=== PATIENT | female | born 2000 | race Caucasian/White ===

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

== ENCOUNTER → 2022-03-04 | Outpatient (CLI) | payer OTHER ==
--- NOTE | 2022-03-05 07:49 | US ---
EXAMINATION TYPE: US kidneys/renal and bladder DATE OF EXAM: 03/04/2022 COMPARISON: Renal ultrasound 03/04/2021 CLINICAL HISTORY: N28.1 Cyst of kidney. EXAM MEASUREMENTS: Right Kidney: 10.4 x 5.5 x 4.6 cm Left Kidney: 11.5 x 5.3 x 4.8 cm Technically difficult and somewhat limited due to overlying bowel gas. Right Kidney: No hydronephrosis or masses seen Left Kidney: cyst measuring 0.9 x 0.8 x 1.0cm Bladder: wnl Bilateral Jets seen: Yes There is no evidence for hydronephrosis at this point in time. No nephrolithiasis. A simple cyst serjio uring 1.0 cm in the mid left kidney No masses are identified. The urinary bladder is anechoic. Bila teral ureteral jets are seen. IMPRESSION: 1. Left mid kidney 1 cm simple cyst. 2. No evidence of obstructive uropathy or shadowing calculus.
== END | disposition home or self-care (01) ==
LOC: RADUSWWP 16:03
PROVIDERS: ATTEND Urology
DX: N28.1 Cyst of kidney, acquired (principal)
CPT/HCPCS: 76770

== ENCOUNTER 2024-08-21 20:16 | Emergency (ER) | payer OTHER ==
--- NOTE | 2024-08-21 20:44 | ED ---
General Adult HPI - General Source: patient, RN notes reviewed Mode of arrival: ambulatory Limitations: no limitations <Olga Lidia Norris - Last Filed: 08/21/24 23:27> <Benita Dutta - Last Filed: 08/22/24 02:44> - General Chief complaint: Abdominal Pain Stated complaint: abd pain Time Seen by Provider: 08/21/24 20:28 - History of Present Illness Initial comments: 24-year-old female presents to the emergency department with abdominal pain. Patient reports that in the right lower abdomen. She states that this started today. She does report that it is intermittent. She states it is lasting around 20 minutes at a time. She states it is a sharp shooting pain. Admits to chills. She does note that she has had a cold. (Olga Lidia Norris) - Related Data Home Medications Medication Instructions Recorded Confirmed Doxycycline Monohydrate [Monodox] 100 mg PO HS 09/30/20 09/30/20 Previous Rx's Medication Instructions Recorded Ondansetron Odt [Zofran Odt] 4 mg PO Q8HR PRN #10 tab 09/16/20 Ketorolac [Toradol] 10 mg PO Q8HR #8 tab 09/30/20 Allergies Allergy/AdvReac Type Severity Reaction Status Date / Time No Known Allergies Allergy Verified 08/21/24 20:20 Review of Systems ROS Other: All systems not noted in ROS Statement are negative. <Olga Lidia Norris - Last Filed: 08/21/24 23:27> ROS Other: All systems not noted in ROS Statement are negative. <Benita Dutta - Last Filed: 08/22/24 02:44> ROS Statement: Those systems with pertinent positive or pertinent negative responses have been documented in the HPI. Past Medical History Past Medical History: No Reported History Additional Past Medical History / Comment(s): kidney stones History of Any Multi-Drug Resistant Organisms: None Reported Additional Past Surgical History / Comment(s): ovarian cyst removal Past Psychological History: No Psychological Hx Reported Smoking Status: Never smoker Past Alcohol Use History: None Reported Past Drug Use History: None Reported <Olga Lidia Norris - Last Filed: 08/21/24 23:27> General Exam Limitations: no limitations General appearance: alert, in no apparent distress Head exam: Present: atraumatic, normocephalic, normal inspection Eye exam: Present: normal appearance, PERRL, EOMI. Absent: scleral icterus, conjunctival injection, periorbital swelling ENT exam: Present: normal exam, mucous membranes moist Respiratory exam: Present: normal lung sounds bilaterally. Absent: respiratory distress, wheezes, rales, rhonchi, stridor Cardiovascular Exam: Present: regular rate, normal rhythm, normal heart sounds. Absent: systolic murmur, diastolic murmur, rubs, gallop, clicks GI/Abdominal exam: Present: soft, tenderness (RLQ), normal bowel sounds. Absent: distended, guarding, rebound, rigid Extremities exam: Present: normal inspection, full ROM, normal capillary refill. Absent: tenderness, pedal edema, joint swelling, calf tenderness Back exam: Present: normal inspection Neurological exam: Present: alert, oriented X3 Psychiatric exam: Present: normal affect, normal mood Skin exam: Present: warm, dry, intact, normal color. Absent: rash <Olga Lidia Norris - Last Filed: 08/21/24 23:27> Limitations: no limitations General appearance: alert, in no apparent distress GI/Abdominal exam: Present: tenderness <Benita Dutta - Last Filed: 08/22/24 02:44> Course Vital Signs 08/21/24 08/22/24 08/22/24 20:18 00:06 02:14 Temperature 98.3 F 101.7 F H 99.6 F Pulse Rate 97 117 H 107 H Respiratory 18 17 19 Rate Blood Pressure 140/89 117/74 110/65 O2 Sat by Pulse 99 99 100 Oximetry Medical Decision Making - Lab Data Result diagrams: 08/21/24 21:14 08/21/24 21:14 <Olga Lidia Norris - Last Filed: 08/21/24 23:27> - Lab Data Result diagrams: 08/21/24 21:14 08/21/24 21:14 - Radiology Data Radiology results: report reviewed, image reviewed <Benita Dutta - Last Filed: 08/22/24 02:44> - Medical Decision Making Was pt. sent in by a medical professional or institution (, PA, SALES REPRESENTATIVE WIRE ROPE, urgent care, hospital, or residential...) When possible be specific @ -[No] Did you speak to anyone other than the patient for history (EMS, parent, family, police, friend...)? What history was obtained from this source @ -[No] Did you review nursing and triage notes (agree or disagree)? Why? @ -[I reviewed and agree with nursing and triage notes] Were old charts reviewed (outside hosp., previous admission, EMS record, old EKG, old radiological studies, urgent care reports/EKG's, residential records)? Report findings @ -[No old charts were reviewed] Differential Diagnosis (chest pain, altered mental status, abdominal pain women, abdominal pain men, vaginal bleeding, weakness, fever, dyspnea, syncope, headache, dizziness, GI bleed, back pain, seizure, CVA, palpatations, mental health, musculoskeletal)? @ -Differential Abdominal Pain Men: Appendicitis, cholecystitis, diverticulosis, ischemic bowel, pancreatitis, hepatitis, UTI, gastroenteritis, AAA, incarcerated hernia, bowel obstruction, constipation, inflammatory bowel, hepatitis, peptic ulcer disease, splenic infa rction, perforated viscus, testicular torsion, this is not meant to be an all- inclusive list EKG interpreted by me (3pts min.). @ -None X-rays interpreted by me (1pt min.). @ -[None done] CT interpreted by me (1pt min.). @ -[None done] U/S interpreted by me (1pt. min.). @ -[None done] What testing was considered but not performed or refused? (CT, X-rays, U/S, labs)? Why? @ -[None] What meds were considered but not given or refused? Why? @ -[None] Did you discuss the management of the patient with other professionals (professionals i.e. , PA, SALES REPRESENTATIVE W[employer] ROPE, lab, RT, psych nurse, health care social worker, cissp, teacher, campus security officer, telephonic case manager)? Give summary @ -[No] Was smoking cessation discussed for >3mins.? @ -[No] Was critical care preformed (if so, how long)? @ -[No] Were there social determinants of health that impacted care today? How? (Homelessness, low income, unemployed, alcoholism, drug addiction, transportation, low edu. Level, literacy, decrease access to med. care, residential, rehab)? @ -[No] Was there de-escalation of care discussed even if they declined (Discuss DNR or withdrawal of care, Hospice)? DNR status @ -[No] What co-morbidities impacted this encounter? (DM, HTN, Smoking, COPD, CAD, Cancer, CVA, ARF, Chemo, Hep., AIDS, mental health diagnosis, sleep apnea, morbid obesity)? @ -[None] Was patient admitted / discharged? Hospital course, mention meds given and rout e, prescriptions, significant lab abnormalities, going to OR and other pertinent info. @ -[Patient presented emergency department for evaluation of right lower quadrant abdominal pain. Laboratory studies obtained revealing leukocytosis of 15.3, hemoglobin 12.9; CMP on actionable, no significant lactic acidosis; UA shows no evidence of infectious process, negative urine hCG. Negative for COVID, influenza, RSV. Patient underwent transvaginal ultrasound and CT abdomen pelvis] Undiagnosed new problem with uncertain prognosis? @ -[No] Drug Therapy requiring intensive monitoring for toxicity (Heparin, Nitro, Insulin, Cardizem)? @ -[No] Were any procedures done? @ -[No] Diagnosis/symptom? @ -[default] Acute, or Chronic, or Acute on Chronic? @ -[default] Uncomplicated (without systemic symptoms) or Complicated (systemic symptoms)? @ -[default] Side effects of treatment? @ -[No] Exacerbation, Progression, or Severe Exacerbation? @ -[No] Poses a threat to life or bodily function? How? (Chest pain, USA, AR, pneumonia, PE, COPD, DKA, ARF, appy, cholecystitis, CVA, Diverticulitis, Homicidal, Suicidal, threat to staff... and all critical care pts) @ -[No] (Olga Lidia Norris) Was pt. sent in by a medical professional or institution (, DEBRA, SALES REPRESENTATIVE WIRE ROPE, urgent care, hospital, or residential...) When possible be specific @ -No Did you speak to anyone other than the patient for history (EMS, parent, family, police, friend...)? What history was obtained from this source @ -No Did you review nursing and triage notes (agree or disagree)? Why? @ -I reviewed and agree with nursing and triage notes Were old charts reviewed (outside hosp., previous admission, EMS record, old EKG, old radiological studies, urgent care reports/EKG's, residential records)? Report findings @ -No old charts were reviewed Differential Diagnosis (chest pain, altered mental status, abdominal pain women, abdominal pain men, vaginal bleeding, weakness, fever, dyspnea, syncope, headache, dizziness, GI bleed, back pain, seizure, CVA, palpatations, mental health, musculoskeletal)? @ -Differential Abdominal Pain Women:Appendicitis, Cholecystitis, diverticul osis, ischemic bowel, pancreatitis, hepatitis, UTI, gastroenteritis, AAA, incarcerated hernia, bowel obstruction, constipation, inflammatory bowel, hepatitis, peptic ulcer disease, splenic infarction, perforated viscus, vulvitis, ovarian torsion, PID, kidney stone, placenta abruption, this is not me ant to be an all-inclusive list EKG interpreted by me (3pts min.). @ -None done X-rays interpreted by me (1pt min.). @ -None done CT interpreted by me (1pt min.). @ -CT abdomen pelvis showing a normal caliber appendix. Cyst of right adnexa surrounding enhancing tissue noted. Small free fluid anterior pelvis adjacent to right adnexa. No loculation. U/S interpreted by me (1pt. min.). @ -Transvaginal ultrasound showing a hypoechoic rounded area within the right ovary suggesting hemorrhagic cyst. No ovarian torsion. Fluid collection adjacent to right thigh with low-level echoes. No evidence of loculated capsule. Likely reactive changes or fluid from partial adnexal cystic rupture. What testing was considered but not performed or refused? (CT, X-rays, U/S, labs)? Why? @ -None What meds were considered but not given or refused? Why? @ -None Did you discuss the management of the patient with other professionals (professionals i.e. , PA, SALES REPRESENTATIVE WIRE ROPE, lab, RT, psych nurse, health care social worker, cissp, teacher, campus security officer, telephonic case manager)? Give summary @ -No Was smoking cessation discussed for >3mins.? @ -No Was critical care preformed (if so, how long)? @ -No Were there social determinants of health that impacted care today? How? (Homelessness, low income, unemployed, alcoholism, drug addiction, transportation, low edu. Level, literacy, decrease access to med. care, residential, rehab)? @ -No Was there de-escalation of care discussed even if they declined (Discuss DNR or withdrawal of care, Hospice)? DNR status @ -No What co-morbidities impacted this encounter? (DM, HTN, Smoking, COPD, CAD, Cancer, CVA, ARF, Chemo, Hep., AIDS, mental health diagnosis, sleep apnea, morbid obesity)? @ -Ovarian cyst Was patient admitted / discharged? Hospital course, mention meds given and route, prescriptions, significant lab abnormalities, going to OR and other pertinent info. @ -Discharge. 24-year-old female presented the ER for evaluation of abdominal pain. Patient signed out to me from Olga Lidia Norris PA-C pending imaging results and disposition. Upon my examination, patient has focal right lower quadrant abdominal tenderness. Patient did become febrile at that time with a temperature of 101.7F and associated tachycardia at 117. Vital signs otherwise within acceptable limits. Laboratory study showed a leukocytosis of 15.3 with a left shift. CMP unimpressive. Lactic 1.1. Urinalysis with no evidence of infection. hCG negative. Viral swabs and strep negative. CT abdomen pelvis showing a normal appendix. Transvaginal ultrasound showing a right hemorrhagic ovarian cyst with free fluid in the pelvis suggesting possible rupture. Fever treated with ibuprofen, Tylenol, IV flulids, with improvement. Upon reevaluation, patient resting complaint exam room no signs of acute distress. Results discussed with patient, all questions answered. I advised her to follow-up closely with PCP and ARCHITECTURAL SALES CONSULTANT for further evaluation. Outpatient fever control with ibuprofen and Tylenol. Strict return parameters discussed. Patient discharged in stable condition. Patient verbally expressed understanding agree with care plan. Case discussed with ED attending, Dr. Zambrano. Undiagnosed new problem with uncertain prognosis? @ -No Drug Therapy requiring intensive monitoring for toxicity (Heparin, Nitro, Insulin, Cardizem)? @ -No Were any procedures done? @ -No Diagnosis/symptom? @ -Ovarian cyst/fever of unknown origin Acute, or Chronic, or Acute on Chronic? @ -Acute Uncomplicated (without systemic symptoms) or Complicated (systemic symptoms)? @ -Uncomplicated Side effects of treatment? @ -No Exacerbation, Progression, or Severe Exacerbation? @ -No Poses a threat to life or bodily function? How? (Chest pain, USA, AR, pneumonia, PE, COPD, DKA, ARF, appy, cholecystitis, CVA, Diverticulitis, Homicidal, Suicidal, threat to staff... and all critical care pts) @ -No (Benita Dutta) - Lab Data Lab Results 08/21/24 08/21/24 08/21/24 Range/Units 21:14 21:14 21:14 WBC 15.3 H (3.8-10.6) k/uL RBC 4.35 (3.80-5.40) m/uL Hgb 12.9 (11.4-16.0) gm/dL Hct 38.7 (34.0-46.0) % MCV 89.0 (80.0-100.0) fL MCH 29.6 (25.0-35.0) pg MCHC 33.2 (31.0-37.0) g/dL RDW 12.7 (11.5-15.5) % Plt Count 252 (150-450) k/uL MPV 8.0 Neutrophils % 88 % Lymphocytes % 7 % Monocytes % 2 % Eosinophils % 1 % Basophils % 0 % Neutrophils # 13.5 H (1.3-7.7) k/uL Lymphocytes # 1.1 (1.0-4.8) k/uL Monocytes # 0.3 (0-1.0) k/uL Eosinophils # 0.2 (0-0.7) k/uL Basophils # 0.0 (0-0.2) k/uL Sodium (137-145) mmol/L Potassium (3.5-5.1) mmol/L Chloride (98-107) mmol/L Carbon Dioxide (22-30) mmol/L Anion Gap mmol/L BUN (7-17) mg/dL Creatinine (0.52-1.04) mg/dL Est GFR (CKD-EPI)AfAm (>60 ml/min/1.73 sqM) Est GFR (CKD-EPI)NonAf (>60 ml/min/1.73 sqM) Glucose (74-99) mg/dL Plasma Lactic Acid Adrian (0.7-2.0) mmol/L Calcium (8.4-10.2) mg/dL Total Bilirubin (0.2-1.3) mg/dL AST (14-36) U/L ALT (4-34) U/L Alkaline Phosphatase (38-126) U/L Total Protein (6.3-8.2) g/dL Albumin (3.5-5.0) g/dL Amylase (30-110) U/L Lipase (23-300) U/L Urine Color Colorless Urine Appearance Clear (Clear) Urine pH 7.0 (5.0-8.0) Ur Specific [place] 1.003 (1.001-1.035) Urine Protein Negative (Negative) Urine Glucose (UA) Negative (Negative) Urine Ketones Negative (Negative) Urine Blood Negative (Negative) Urine Nitrite Negative (Negative) Urine Bilirubin Negative (Negative) Urine Urobilinogen <2.0 (<2.0) mg/dL Ur Leukocyte Esterase Negative (Negative) Urine HCG, Qual Not Detected (Not Detectd) Influenza Type A (PCR) (Not Detectd) Influenza Type B (PCR) (Not Detectd) RSV (PCR) (Not Detectd) SARS-CoV-2 (PCR) (Not Detectd) Group A Strep (PCR) (Not Detectd) 08/21/24 08/21/24 08/21/24 Range/Units 21:14 21:14 21:14 WBC (3.8-10.6) k/uL RBC (3.80-5.40) m/uL Hgb (11.4-16.0) gm/dL Hct (34.0-46.0) % MCV (80.0-100.0) fL MCH (25.0-35.0) pg MCHC (31.0-37.0) g/dL RDW (11.5-15.5) % Plt Count (150-450) k/uL MPV Neutrophils % % Lymphocytes % % Monocytes % % Eosinophils % % Basophils % % Neutrophils # (1.3-7.7) k/uL Lymphocytes # (1.0-4.8) k/uL Monocytes # (0-1.0) k/uL Eosinophils # (0-0.7) k/uL Basophils # (0-0.2) k/uL Sodium 139 (137-145) mmol/L Potassium 4.3 (3.5-5.1) mmol/L Chloride 102 (98-107) mmol/L Carbon Dioxide 28 (22-30) mmol/L Anion Gap 9 mmol/L BUN 10 (7-17) mg/dL Creatinine 0.67 (0.52-1.04) mg/dL Est GFR (CKD-EPI)AfAm >90 (>60 ml/min/1.73 sqM) Est GFR (CKD-EPI)NonAf >90 (>60 ml/min/1.73 sqM) Glucose 91 (74-99) mg/dL Plasma Lactic Acid Adrian 1.1 (0.7-2.0) mmol/L Calcium 9.7 (8.4-10.2) mg/dL Total Bilirubin 0.7 (0.2-1.3) mg/dL AST 41 H (14-36) U/L ALT 31 (4-34) U/L Alkaline Phosphatase 71 (38-126) U/L Total Protein 8.1 (6.3-8.2) g/dL Albumin 5.1 H (3.5-5.0) g/dL Amylase 61 (30-110) U/L Lipase 94 (23-300) U/L Urine Color Urine Appearance (Clear) Urine pH (5.0-8.0) Ur Specific [place] (1.001-1.035) Urine Protein (Negative) Urine Glucose (UA) (Negative) Urine Ketones (Negative) Urine Blood (Negative) Urine Nitrite (Negative) Urine Bilirubin (Negative) Urine Urobilinogen (<2.0) mg/dL Ur Leukocyte Esterase (Negative) Urine HCG, Qual (Not Detectd) Influenza Type A (PCR) Not Detected (Not Detectd) Influenza Type B (PCR) Not Detected (Not Detectd) RSV (PCR) Not Detected (Not Detectd) SARS-CoV-2 (PCR) Not Detected (Not Detectd) Group A Strep (PCR) (Not Detectd) 08/22/24 Range/Units 00:15 WBC (3.8-10.6) k/uL RBC (3.80-5.40) m/uL Hgb (11.4-16.0) gm/dL Hct (34.0-46.0) % MCV (80.0-100.0) fL MCH (25.0-35.0) pg MCHC (31.0-37.0) g/dL RDW (11.5-15.5) % Plt Count (150-450) k/uL MPV Neutrophils % % Lymphocytes % % Monocytes % % Eosinophils % % Basophils % % Neutrophils # (1.3-7.7) k/uL Lymphocytes # (1.0-4.8) k/uL Monocytes # (0-1.0) k/uL Eosinophils # (0-0.7) k/uL Basophils # (0-0.2) k/uL Sodium (137-145) mmol/L Potassium (3.5-5.1) mmol/L Chloride (98-107) mmol/L Carbon Dioxide (22-30) mmol/L Anion Gap mmol/L BUN (7-17) mg/dL Creatinine (0.52-1.04) mg/dL Est GFR (CKD-EPI)AfAm (>60 ml/min/1.73 sqM) Est GFR (CKD-EPI)NonAf (>60 ml/min/1.73 sqM) Glucose (74-99) mg/dL Plasma Lactic Acid Adrian (0.7-2.0) mmol/L Calcium (8.4-10.2) mg/dL Total Bilirubin (0.2-1.3) mg/dL AST (14-36) U/L ALT (4-34) U/L Alkaline Phosphatase (38-126) U/L Total Protein (6.3-8.2) g/dL Albumin (3.5-5.0) g/dL Amylase (30-110) U/L Lipase (23-300) U/L Urine Color Urine Appearance (Clear) Urine pH (5.0-8.0) Ur Specific [place] (1.001-1.035) Urine Protein (Negative) Urine Glucose (UA) (Negative) Urine Ketones (Negative) Urine Blood (Negative) Urine Nitrite (Negative) Urine Bilirubin (Negative) Urine Urobilinogen (<2.0) mg/dL Ur Leukocyte Esterase (Negative) Urine HCG, Qual (Not Detectd) Influenza Type A (PCR) (Not Detectd) Influenza Type B (PCR) (Not Detectd) RSV (PCR) (Not Detectd) SARS-CoV-2 (PCR) (Not Detectd) Group A Strep (PCR) NOT DETECTED (Not Detectd) Disposition <Olga Lidia Norris - Last Filed: 08/21/24 23:27> Is patient prescribed a controlled substance at d/c from ED?: No Time of Disposition: 01:33 <Benita Dutta - Last Filed: 08/22/24 02:44> Clinical Impression: Ovarian cyst, Fever, unknown origin Disposition: HOME SELF-CARE Condition: Stable Additional Instructions: You may take [id number] ibuprofen and Tylenol for fever control outpatie nt. Follow-up closely with PCP for reevaluation. I also recommend following up with ARCHITECTURAL SALES CONSULTANT for evaluation of ovarian cyst. Return to the ER for any new or worsening concerns Referrals: Neo Galeana MD [Primary Care Provider] - 1-2 days Ann Dickerson MD [STAFF PHYSICIAN] - 1-2 days
[2024-08-21 21:53] LABS: Basophils % (A) 0 %; Eosinophils # (A) 0.2 k/uL (0-0.7); Eosinophils % (A) 1 %; HCT 38.7 % (34.0-46.0); HGB 12.9 gm/dL (11.4-16.0); Lymphocytes # (A) 1.1 k/uL (1.0-4.8); Lymphocytes % (A) 7 %; MCH 29.6 pg (25.0-35.0); MCHC 33.2 g/dL (31.0-37.0); Monocytes # (A) 0.3 k/uL (0-1.0); Monocytes % (A) 2 %; Neutrophils # (A) 13.5 k/uL (1.3-7.7); Neutrophils % (A) 88 %; Platelet Count 252 k/uL (150-450); RBC 4.35 m/uL (3.80-5.40); RDW 12.7 % (11.5-15.5); WBC 15.3 k/uL (3.8-10.6)
[2024-08-21 21:57] LABS: Appearance,Urine Clear (Clear); Bilirubin,Urine Negative (Negative); Blood,Urine Negative (Negative); Color,Urine Colorless; Glucose,Urine (UA) Negative (Negative); Ketones,Urine Negative (Negative); Leukocyte Esterase,Urine Negative (Negative); Nitrite,Urine Negative (Negative); Protein,Urine Negative (Negative); Specific Gravity,Urine 1.003 (1.001-1.035); Urobilinogen,Urine <2.0 mg/dL (<2.0)
[2024-08-21 22:03] LABS: ALT 31 U/L (4-34); African American GFR (CKD) >90 (>60 ml/min/1.73 sqM); Albumin 5.1 g/dL (3.5-5.0); Amylase 61 U/L (30-110); Anion Gap 9 mmol/L; Blood Urea Nitrogen 10 mg/dL (7-17); Calcium 9.7 mg/dL (8.4-10.2); Carbon Dioxide 28 mmol/L (22-30); Chloride 102 mmol/L (98-107); Glucose 91 mg/dL (74-99); Lipase 94 U/L (23-300); Non-African American GFR(CKD) >90 (>60 ml/min/1.73 sqM); Sodium 139 mmol/L (137-145); Total Bilirubin 0.7 mg/dL (0.2-1.3); Total Protein 8.1 g/dL (6.3-8.2)
[2024-08-21 22:06] LABS: AST 41 U/L (14-36); Alkaline Phosphatase 71 U/L (38-126); Potassium 4.3 mmol/L (3.5-5.1)
[2024-08-21 22:28] LABS: Influenza A Not Detected (Not Detectd); Influenza B Not Detected (Not Detectd); RSV Not Detected (Not Detectd)
[2024-08-22] MEDS: IBUPROFEN 600 MG TAB PO STA (00:17)
[2024-08-22] MEDS: SODIUM CHLORIDE 0.9% 1,000 ML IV ONE (00:17)
[2024-08-22] MEDS: ACETAMINOPHEN TAB 325 MG TAB PO STA (00:17)
--- NOTE | 2024-08-22 00:25 | US ---
EXAM: US Pelvis Transabdominal and Transvaginal, Complete CLINICAL HISTORY: Right sided pain TECHNIQUE: Real-time complete transabdominal and transvaginal pelvic ultrasound with image documentation. Transvaginal imaging was used for better evaluation of the endometrium and adnexa. COMPARISON: No relevant prior studies available. FINDINGS: Uterus/cervix: The uterus measures 7.6 x 2.6 x 4.6 cm. The endometrial stripe measures 12 mm. No myometrial mass. Right ovary: The right ovary measures 3.6 x 4 x 2.6 cm. There is a 2. 4 x 2.6 x 2.3 cm a complex hypoechoic rounded area within the right ovary. There is a 2.9 x 1.4 x 2.3 cm fluid collection adjacent to the right adnexa with low-level echoes. No evidence for loculated capsule. Normal blood flow. Left ovary: The left ovary is not identified secondary to bowel gas pattern. Free fluid: No free fluid. Bladder: Unremarkable as visualized. Wall is normal thickness for degree of distention. IMPRESSION: 1. There is a 2.4 x 2.6 x 2.3 cm a complex hypoechoic rounded area within the right ovary. The primary consideration is a hemorrhagic cyst. No right ovarian torsion. 2. There is a 2.9 x 1.4 x 2.3 cm fluid collection adjacent to the right adnexa with low-level echoes. No evidence for loculated capsule. Suspect reactive changes or fluid from partial adnexal cyst rupture.
--- NOTE | 2024-08-22 00:41 | CT ---
EXAM: CT Abdomen and Pelvis With Intravenous Contrast CLINICAL HISTORY: RLQ pain TECHNIQUE: Axial computed tomography images of the abdomen and pelvis with intravenous contrast. CTDI is 13.8 mGy and DLP is 654.9 mGy-cm. This CT exam was performed using one or more of the following dose reduction techniques: automated exposure control, adjustment of the mA and/or kV according to patient size, and/or use of iterative reconstruction technique. CONTRAST: 100 mL Isovue-300 COMPARISON: Pelvic ultrasound performed earlier FINDINGS: Lung bases: Unremarkable. No mass. No consolidation. ABDOMEN: Liver: Unremarkable. No mass. Gallbladder and bile ducts: Unremarkable. No calcified stones. No ductal dilation. Pancreas: Unremarkable. No mass. No ductal dilation. Spleen: Unremarkable. No splenomegaly. Adrenals: Unremarkable. No mass. Kidneys and ureters: Unremarkable. No solid mass. No hydronephrosis. Stomach and bowel: No bowel obstruction. No definite asymmetric bowel mucosal abnormality, accounting for respiratory artifact. Mild stool burden. PELVIS: Appendix: A normal caliber appendix is noted immediately inferior to the cecum in the right lower quadrant, best appreciated on reformatted imaging. Bladder: Unremarkable. No mass. Reproductive: There is a 2.3 x 1.7 x 2.4 cm a rim-enhancing cyst in the right adnexa/ovary. Surrounding enhancing tissue noted. The uterus and left adnexa are unremarkable. ABDOMEN and PELVIS: Intraperitoneal space: Small volume free fluid in the anterior pelvis adjacent to the right adnexa. No loculation. No free air. Bones/joints: No acute fracture. No dislocation. Soft tissues: Unremarkable. Vasculature: Unremarkable. No abdominal aortic aneurysm. Lymph nodes: Unremarkable. No enlarged lymph nodes. IMPRESSION: 1. A normal caliber appendix is noted immediately inferior to the cecum in the right lower quadrant, best appreciated on reformatted imaging. 2. There is a 2.3 x 1.7 x 2.4 cm a rim-enhancing cyst in the right adnexa/ovary. Surrounding enhancing tissue noted. This correlates with the pelvic ultrasound performed earlier. 3. Small volume free fluid in the anterior pelvis adjacent to the right adnexa. No loculation.
[2024-08-22 02:15] VITALS: BP 110/65; PULSE 107; RESP 19; TEMP 99.6
[2024-08-22] MEDS: PIPERACILLIN-TAZOBACTAM 3.375 GM in SODIUM CHLORIDE 0.9% 100 ML IVPB STA (02:16)
== END 2024-08-22 02:15 | disposition home or self-care (01) ==
LOC: EC 20:16
DX: N83.201 Unspecified ovarian cyst, right side (principal); R50.9 Fever, unspecified; D72.829 Elevated white blood cell count, unspecified; R00.0 Tachycardia, unspecified
CPT/HCPCS: 36415; 87651; 80053; 82150; 83605; 83690; 85025; 81003; 81025; 87636; 93976; 76830; 74177; 99284; 96360; Q9967